=== PATIENT | male | born 1955 | race Caucasian/White ===

== ENCOUNTER → 2018-06-07 | Outpatient (CLI) | payer OTHER ==
[~2018-06-07] VITALS: Ht 182.9 cm; Wt 123.4 kg
[2018-06-07] VITALS (11 sets, daily range): BP systolic 119–152; BP diastolic 45–74
[~2018-06-07] MED LIST: ASPIR 8181 MG PO; ATORVASTATIN CA40 MG PO; GINKGO BILOBA120 M1 PO; MULTIVITAMINS1 EAC7 PO; TURMERIC500 M2 PO; XANAX 0.5 MG0.5 MG PO
[2018-06-07 10:00] LABS: HEMATOCRIT 48.2 % (42.0-52.0); HEMOGLOBIN 16.5 gm/dL (14.0-18.0); MCH 31.6 pg (26.0-34.0); MCHC 34.2 g/dL (28.0-37.0); MCV 92.6 fL (80.0-100.0); MPV 9.5 fl. (7.2-11.1); RBC 5.2 mil/uL (4.50-6.00); RDW-CV 13.5 % (10.5-14.5); WBC 6.2 thou/uL (4.0-11.0)
[2018-06-07 10:05] LABS: APTT 26.4 Seconds (25.0-31.3); PROTIME 10.3 Seconds (9.20-11.50)
[2018-06-07 10:18] LABS: ANION GAP 6 mmol/L (7-16); BUN 15 mg/dL (7-18); CALCIUM 8.9 mg/dL (8.5-10.1); CHLORIDE 104 mmol/L (98-107); CO2 26 mmol/L (21-32); GLUCOSE 102 mg/dL (70-99); POTASSIUM 4.5 mmol/L (3.5-5.1); SODIUM 136 mmol/L (136-145)
[2018-06-07 10:23] LABS: ALBUMIN 4.1 g/dL (3.4-5.0); ALKALINE PHOSPHATASE 59 U/L (46-116); SGOT 22 U/L (15-37); SGPT 45 U/L (30-65); TOTAL BILIRUBIN 0.6 mg/dL (<0.1-1.0); TOTAL PROTEIN 7.4 g/dL (6.4-8.2)
[2018-06-07 10:55] LABS: CHOLESTEROL 166 mg/dL (<200); HDL CHOLESTEROL 40 mg/dL (>40); LDL CHOLESTEROL 93 mg/dL (<100); TC:HDL 4.2 Ratio (Not establshd); TRIGLYCERIDE 166 mg/dL (<150); VLDL 33 mg/dL (<40)
[2018-06-07 10:57] LABS: SERUM ASSESSMENT Clear
--- NOTE | 2018-06-07 17:55 | TEE ---
[place] [address] TRANSESOPHAGEAL ECHOCARDIOGRAM Name: KALPESHBRY FRANCO Room: [facility]#: [id number] Admission: 06/07/18 Attend Phys: Mikel Ray Discharge: Date of : 57 Date of Service: 06/07/18 1755 Report #: [id number] THIS REPORT FOR: //name// APPROVED REPORT Study performed: 06/07/2018 15:02:19 EXAM: Transesophageal Echocardiogram Patient Location: Out-Patient Status: routine BSA: 2.43 HR: 82 bpm BP: 152/69 mmHg Rhythm: NSR Other Information Study Quality: Good Indications Aortic Valve Disease Echo Enhancing Agent Indication: Rule out Shunt Agent(s) / Amount(s) Used: Agitated Saline 10 cc Procedure After obtaining informed consent, patient underwent transesophageal echo in the [employer]. Type of Sedation : Conscious Sedation Sedation was administered by Kacie Farris RN. Sedation start time: 1513 Case end Time: 1528 Sedation was achieved intravenously with: Versed (5) Fentanyl (100) Transesophageal probe was inserted and advanced into esophagus without difficulty by Grady Smiley MD, FACC. Echo enhancement indication: R/O Septal defect. Echo enhancement agent administered: Agitated Saline The JULIANA was performed without complications. Throughout the procedure, the blood pressure, pulse oximetry, cardiac rhythm, and rate were monitored. The patient tolerated the procedure without adverse effects. Recovery from conscious sedation was uneventful and vital signs were stable. Left Ventricle [address] [address] TRANSESOPHAGEAL ECHOCARDIOGRAM Name: BRY POSEY Room: [facility].#: [id number] Admission: 06/07/18 Attend Phys: Mikel Ray Discharge: Date of : 57 Date of Service: 06/07/18 1755 Report #: [id number] The left ventricle is the upper limits of normal in size. There is normal LV segmental wall motion. There is normal left ventricular wall thickness. Left ventricular systolic function appears to be at the lower limits of normal. LVEF is 50-55%. Right Ventricle The right ventricle is normal size. The right ventricular systolic function is normal. Atria No thrombus is visualized in the left atrium or appendage. Interatrial septum is intact without evidence of ASD or PFO. The right atrium size is normal. Aortic Valve Aortic valve is bicuspid. Aortic regurgitant jet not well defined. There is no aortic valvular stenosis. Mitral Valve The mitral valve is normal in structure. The mitral valve is normal in structure. Trace mitral insufficiency. No evidence of mitral valve stenosis. Tricuspid Valve The tricuspid valve is normal in structure. Trace tricuspid regurgitation. Pulmonic Valve Pulmonic valve is not well visualized. 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 (5.1 cm) Pericardium There is no pericardial effusion. <Conclusion> The left ventricle is the upper limits of normal in size. Left ventricular systolic function appears to be at the lower limits of normal. LVEF is 50-55%. Aortic valve is bicuspid. Aortic regurgitant jet not well defined. There is no aortic valvular stenosis. Trace mitral insufficiency. 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 (5.1 cm) [place] [address] TRANSESOPHAGEAL ECHOCARDIOGRAM Name: BRY POSEY Room: [facility]#: [id number] Admission: 06/07/18 Attend Phys: Mikel Ray Discharge: Date of : 57 Date of Service: 06/07/181754 Report #: [id number] Aortic regurgitant jet not well defined. Consider transthoracic echocardiogram for further definition. <ELECTRONICALLY SIGNED> By: Grady Smiley MD, FACC 06/07/181754 54 54 Grady Smiley MD, FACC /INF
--- NOTE | 2018-06-07 18:30 | EKG ---
[place] [address] ELECTROCARDIOGRAM REPORT Name: KALPESHBRY Room: [facility]#: [id number] Admission: 06/07/18 Attend Phys: Bry Regan MD, Discharge: Date of : 57 Report #: [id number] THIS REPORT FOR: //name// [facility] Test Date: 2018-06-07 Test Time: 10:35:39 Pat Name: BRY POSEY Department: Room: Gender: M [employer]: : 1955 Requested By: Bry Regan Order Number: [id number] Reading MD: Bry Regan Measurements Intervals [place] Rate: 78 P: 43 MO: 171 QRS: 22 QRSD: 102 T: 83 QT: 375 QTc: 428 Interpretive Statements Sinus rhythm Borderline repolarization abnormality No previous ECG available for comparison Electronically Signed On 06-07-2018 18:30:44 [employer] by Bry Regan [email or web address] <ELECTRONICALLY SIGNED> By: Bry Regan MD, [facility] 06/07/18 1830 1035 1035 Bry Regan MD, FACC /EPI
--- NOTE | 2018-06-09 11:03 | CARD ---
[address] [address] CARDIAC CATH REPORT Name: BRY POSEY [facility] [id number] Admission: 06/07/18 Attend Phys: Bry Regan MD, Discharge: Date of : 57 Report #: [id number] THIS REPORT FOR: //name// APPROVED REPORT Study performed: 06/07/2018 11:25:20 Patient Details Patient Status: Out-Patient Room #: The patient is a 63 year-old male Event Personnel Bry Regan [employer], Nisa Encarnacion RN [employer], Malik Gonzalez, Beti Denise Monitor Procedures Performed Art Access - R femoral artery* , [facility]/o Coronaries [id number] [facility] Supravalvular Aortography Injection [id number] ISVA Indication Valvular heart disease Risk Factors Arterial Hypertension Procedure Narrative The patient was brought electively to the Cardiac Catheterization Laboratory and was prepped and draped in a sterile manner. The right femoral was infiltrated with 2% Lidocaine subcutaneous anesthesia. A [place] 6 FR sheath was inserted into the right femoral artery. Coronary angiography was performed using coronary diagnostic catheters. The right coronary system was accessed and visualized with a 6fr JR 4 catheter. The left coronary system was accessed and visualized with a 6fr JL 4 catheter. The left ventricle was accessed and visualized with a 6fr Straight Pigtail catheter. Left ventricular/Aortic Valve gradient assessed via catheter pullback. Left ventriculogram was performed in ISLAS projection. An aortogram of the ascending aorta was performed. Pre-demployment femoral angiogram was performed . Closure device was deployed with a 6 Fr MynxGrip 6/7F. The patient tolerated the procedure well and there were no complications associated with the procedure. There was no hematoma. Intra[place] [address] CARDIAC CATH REPORT Name: BRY POSEY Room: [facility]#: [id number] Admission: 06/07/18 Attend Phys: Bry Regan MD, Discharge: Date of : 57 Report #: [id number] Sedation start time: 12:10 Case end Time: 12:40 Fentanyl 25 mcg Versed 2 mg Fluoro Time: 8.7 minutes Dose: DAP 560576 cGycm2 1526.65 mGy Contrast Type and Amount: Visipaque 180 ml Coronary Angiography The patient's coronary anatomy is right dominant. Diagnostic Cath Left Main 0% narrowing LAD Tortuous vessel with 0% narrowing Circumflex Tortuous vessel with 0% narrowing Right Coronary Large dominant vessel with 30% proximal narrowing and tortuosity Left Ventriculography The left ventricle is mildly dilated in size with normal contractility. The left ventricular ejection fraction is estimated to be 55%. Left ventricular wall motion abnormalities are not present. There is no mitral insufficiency. Ascending aortography demonstrated moderate dilatation of the aortic root and ascending aorta with severe, 4+/ 4+, aortic insufficiency into a mildly dilated left ventricle cavity with complete opacification of the cavity Hemodynamics The aortic pressure is 116/58 mmHg with a mean of mmHg. The left ventricular pressure is 134/6 mmHg with a mean of mmHg. The left ventricular end diastolic pressure is 27 mmHg. There was no gradient across the aortic valve upon pullback. Pullback from the left ventricle to the aorta revealed no gradient across the aortic valve. Conclusion #1 severe, 4+ / 4+ aortic insufficiency into a mildly dilated left ventricular cavitary with complete cavitary opacification #2 moderate dilatation of the aortic root and ascending aorta #3 no aortic stenosis noted #4 tortuosity without significant narrowings [place] [address] CARDIAC CATH REPORT Name: BRY POSEY Room: [facility]#: [id number] Admission: 06/07/18 Attend Phys: Bry Regan MD, Discharge: Date of : 57 Report #: [id number] #5 significant elevation of left ventricular end-diastolic pressure at rest #6 mild left ventricular cavitary dilatation with preserved systolic function, estimated ejection fraction being 55%. Recommendations Valve Surgery Diagnostic Cath Approved by: Bry Regan MD Date/Time: 06/09/2018 11:01:24 <ELECTRONICALLY SIGNED> By: Bry Regan MD, [facility] 06/09/181102 02 Bry Regan MD, [facility] /INF
== END ==
LOC: M.CL 08:52
PROVIDERS: Internal Medicine
DX: I34.0 Nonrheumatic mitral (valve) insufficiency (principal); I10 Essential (primary) hypertension; E78.00 Pure hypercholesterolemia, unspecified; Z98.890 Other specified postprocedural states; Z79.899 Other long term (current) drug therapy; Z79.82 Long term (current) use of aspirin; Z79.01 Long term (current) use of anticoagulants